=== PATIENT | female | born 1960 | race Caucasian/White ===

== ENCOUNTER 2023-04-10 09:20 | Outpatient (CLI) | payer OTHER, SELFPAY ==
--- NOTE | 2023-04-10 09:42 | ECG_ITS ---
Measurements Intervals [place] Rate: 55 P: 54 DE: 142 QRS: 34 QRSD: 78 T: 29 QT: 420 QTc: 402 Interpretive Statements SINUS BRADYCARDIA BORDERLINE ECG NO PREVIOUS ECG AVAILABLE FOR COMPARISON Electronically Signed On 04-10-2023 18:28:20 CDT by Gerson Stanley M.D.
== END 2023-04-10 09:21 | disposition home or self-care (01) ==
PROVIDERS: Visit Provider Surgery Plastic and Reconstructive Surgery
DX: Z01.818 Encounter for other preprocedural examination (principal); R93.1 Abnormal findings on diagnostic imaging of heart and coronary circulation; F17.210 Nicotine dependence, cigarettes, uncomplicated
CPT/HCPCS: 93005

== ENCOUNTER 2023-04-12 01:39 | Day surgery (SDC) | payer OTHER, SELFPAY ==
[2023-04-01 17:06] VITALS: BMI 23.4
--- NOTE | 2023-04-01 17:15 | PC.NURSE ---
Report to the Outpatient Waiting Room, entrance under the green pavilion located off [facility], at time _0600_ on date _[id number]_. Planned Procedure Time: _0730_. Time changes happen often and if your time is changed the preop area will call you the afternoon before. - You and your visitor will be asked to self-screen and do not enter if you have any COVID symptoms. - A mask is optional within the hospital at this time. Patients may have clear liquids (water, carbonated beverages, clear teas, apple juice) until 3 hours prior to surgery with a maximum of 20 ounces. - No food from midnight until time of surgery Take the following medications with a SIP of water the morning of surgery: ___Lyrica DO NOT STOP ANY OF YOUR OTHER PRESCRIPTION MEDICATIONS PRIOR TO SURGERY ?EXCEPT THE FOLLOWING Medications to discontinue per physician ___Multivitamin and Biotin Date to take last rcrj___[id number] Please no make-up, nail welsh, hairspray, perfume, deodorant, or body powder the day of surgery. No jewelry (including any body piercings) or valuables the day of surgery, leave them at home. Please take a shower or bath the night before, or the morning of, surgery with an antibacterial soap. Wear comfortable, loose fitting clothing. - Jewelry must be removed prior to entering the operating room. Rings and piercings that are not removed may be cut off. - The hospital will not accept responsibility for valuables. - Please leave all valuables, including medications, at home the day of surgery. If you are going home after surgery, a licensed dolly driver must drive you home. - NO public transportation without another adult if you receive anesthesia. - We recommend that an adult stay with you for 24 hours following discharge. - We also recommend that you do not drive, make important decision, drink alcoholic beverages, or take any drugs that were not prescribed by your health care provider for at least 24 hours after your discharge time. Follow any additional instructions given to you from your surgeon. If you or anyone in your household have experienced Covid symptoms in the past week, please notify your surgeon or the nurse liaison at the phone number below for possible testing. Telephone instructions given to __Patient__and asked if any additional questions and then verbalized understanding. Patient advised to call surgeon office or pre surgery nurse liaison [phone] if any additional questions.
[2023-04-12] VITALS (12 sets, daily range): BP systolic 100–161; BP diastolic 54–81; PULSE 40–64; RESP 10–18; TEMP 36.2–36.4; O2SAT 93–99; BMI 24.6
[2023-04-12] MEDS: LACTATED RINGERS 1,000 ML 30 ML IV CONT ×2 (06:30→09:10)
--- NOTE | 2023-04-12 06:44 | P.PNAN_ITS ---
Anes - Initial Pre Proc Eval Procedure: Operation Date: 04/12/23 07:30 Proposed Procedures p Bilateral Breast Implant Exchange with Capsulectomy - Marvel Bolden MD Date/Time: 04/12/23 06:44 Surgeon: Marvel Bolden MD Pre Op Diagnosis: Hx of Breast Implants Patient Data Age: 62 Gender: F Height: 1.55 m Weight: 56.3 kg Allergies Allergy/AdvReac Type Severity Reaction Status Date / Time DARVON-DARVOCET AdvReac Severe GI UPSET Uncoded 04/12/23 06:34 Home Medications Medication Instructions Recorded Confirmed Type albuterol sulfate 90 mcg/actuation 2 inh inhalation QID PRN Dyspnea 04/01/23 04/12/23 History aerosol inhaler biotin 5,000 mcg sublingual tablet 5,000 mcg sublingual DAILY 04/01/23 04/12/23 History fenofibrate nanocrystallized 145 145 mg PO HS 04/01/23 04/12/23 History mg tablet zyoersborjry-lohfivdo-ccizal tablet 1 tablet PO DAILY 04/01/23 04/12/23 History pregabalin 50 mg capsule 150 mg PO TID 04/01/23 04/12/23 History progesterone micronized 200 mg 200 mg PO DAILY 04/01/23 04/12/23 History capsule ropinirole 3 mg tablet 3 mg PO HS 04/01/23 04/12/23 History Patient hx anesthesia problems: none Family hx anesthesia problems: none Results Review: All pre-operative results and documents have been reviewed as part of the pre- operative evaluation. [facility] Surgical History Surgical History (Updated 04/12/23 @ 06:44 by Jesse Musa MD) H/O breast augmentation Family History Family History Other Carcinoma of colon Family history of elevated blood lipids No family history of cardiovascular disease Social History Social History Smoking packs per day: 2 Smoking cigarettes per day: 40.0 Years smoked: 40 Smoking pack-years: 80.00 Smoking status: Former smoker Tobacco type: cigarettes Smoking end date: 03/24/23 Alcohol intake: current Drinks per week: 14 Substance use type: marijuana Other substance usage details: for restless leg, has medical card. Living arrangements: with family Spiritual care concerns: No Anes - Eval Final PreProcedure Day of Procedure 04/12/23 06:44 Patient weight: normal Heart: bradycardia Lungs: clear to auscultation Airway: Mallampati scale class II Neurological: alert and oriented ASA classification: II Emergent: no Anesthetic plan: proceed Anesthesia type and monitoring: general LMA and standard monitoring Results Review: All pre-operative results and documents have been reviewed as part of the pre- operative evaluation. Informed Consent: The patient's anesthetic plan and its attendant risks and benefits were discussed with the patient/family/POA. Questions were solicited and answers provided to the satisfaction of the patient/family/POA.
--- NOTE | 2023-04-12 07:09 | WPDHPUPDATE1 ---
History and Physical Update Update Date/Time: 04/12/23 07:09 History and Physical has been reviewed, including an updated exam of the patient. There are NO changes in the patient's condition. Risks, benefits, and alternatives have been discussed and questions answered. Patient agrees to proceed with procedure.
[2023-04-12] MEDS: ceFAZolin 2 GM/D5W 50 ML 2 GM/50 ML BAG IVPB (07:29)
[2023-04-12] MEDS: LIDO 1%/EPINEPHRINE 1:100,000 50 ML VIAL 30 ML INFILTRATE (07:35)
[2023-04-12] MEDS: BUPivacaine HCL 0.25% PF 30 ML VIAL INFILTRATE (07:35)
[2023-04-12] MEDS: TRANEXAMIC ACID 1,000MG/ISO100 1,000 MG/100 ML BAG 200 MG IVPB (07:40)
[2023-04-12] MEDS: NACL 0.9% IRRIG POUR BOTTLE 900 ML, GENTAMICIN SULFATE INJ 160 MG, ceFAZolin 2 GM, POVI... IRRIGATION (08:27)
--- NOTE | 2023-04-12 09:09 | W.PM.PROC2 ---
Procedure Note - Detailed Date of Procedure 04/12/23 Pre-op Diagnosis Hx of Breast Implants Post-op Diagnosis Same Procedure Performed Bilateral implant exchange with capsulectomy Surgeon Marvel Bolden MD Anesthesia General Findings Bilateral implant rupture with extracapsular extravasation. Previous implants 305cc silicone smooth New implants: Bilateral Denisha Maldonado SoftTouch 360cc Right - REF# [id number] SN [id number] Left - REF# [id number] SN [id number] Description of Procedure Preoperatively the risks, benefits, alternatives were discussed in extensive detail. I wanted to be very realistic about the risks involved as well as expectations. We spent extensive time discussing the complexity of her ruptured implants and her unique outcome. She would like to add some volume to her implants. I was clear about how we could actually make her worse. Answered all questions to satisfaction. Voiced a clear understanding. Consent obtained. She was taken the operating room placed supine on the operating room table. Anesthesia provided by anesthesiology and prepped and draped in a standard sterile fashion. Surgical time-out was taken. 1% lidocaine and 0.25% Marcaine with epinephrine was used to provide a field block. Tegaderm nipple amaya were placed. Fifteen blade used to excise the previous IMF scars. Dissection was continued down until the capsules were identified and excised a significant portion of the capsule and extracapsular silicone which was sent to pathology. I then copiously irrigated with 3 L of saline solution on TUR tubing. Verified strict hemostasis. I then irrigated with Betadine containing solution. Using a no-touch technique and a Moore funnel the implant was introduced into the pocket. This was closed with 2-0 PDS followed by 3-0 Monocryl and a running subcuticular 4-0 Monocryl followed by tissue glue. Dressings were placed. She was woken taken to the PACU without difficulty. All instrument sponge counts were correct at the end of the case. Estimated Blood Loss 100 Drains No Packing No Pathology Yes (Bilateral breast implant capsules / silicone) Complications No immediate complications Condition Stable Disposition PACU
[2023-04-12] MEDS: fentaNYL CITRATE INJ (*CRX) 100 MCG/2 ML VIAL 25 MCG IV PUSH ×6 (09:34→09:55)
[2023-04-12] MEDS: diphenhydrAMINE HCl INJ 50 MG/ML VIAL 25 MG IV PUSH (11:03)
[2023-04-12] MEDS: SCOPOLAMINE 1.5 MG PATCH TRANSDERM (11:03)
== END 2023-04-12 11:50 | disposition home or self-care (01) ==
PROVIDERS: Visit Provider Surgery Plastic and Reconstructive Surgery
PROC: (CPT 19342; principal; 2023-04-12 07:30)
DX: T85.41XA Breakdown (mechanical) of breast prosthesis and implant, initial encounter (principal); Y83.8 Other surgical procedures as the cause of abnormal reaction of the patient, or of later complication, without mention of misadventure at the time of the procedure; Z79.51 Long term (current) use of inhaled steroids; Z87.891 Personal history of nicotine dependence; F12.90 Cannabis use, unspecified, uncomplicated
CPT/HCPCS: 19371; 19325; 88304; A9270; J0690; J1100; J1170; J1200; J1580; J2250; J2405; J2704; J3010; J7120